=== PATIENT | female | born 1980 | race Caucasian/White ===

== ENCOUNTER 2025-02-11 20:03 | Emergency (ER) | payer OTHER ==
[~2025-02-11] VITALS: Ht 157.5 cm; Wt 83.9 kg
[2025-02-11] MEDS ORDERED: Cephalexin Monohydrate 250 MG/5 ML UD BTL PO ONE (22:10)
[2025-02-11] MEDS ORDERED: Cephalexin250 MG/5 M PO (22:29)
== END 2025-02-11 22:44 | disposition home or self-care (01) ==
LOC: ER 20:03
DX: S61.411A Laceration without foreign body of right hand, initial encounter (principal); W25.XXXA Contact with sharp glass, initial encounter; Z88.1 Allergy status to other antibiotic agents
CPT/HCPCS: 12001; 90471; 90715; 99282-25; A9270